=== PATIENT | male | born 1995 | race Caucasian/White ===

== ENCOUNTER 2023-11-14 17:25 | Emergency (ER) | payer BC, OTHER ==
--- NOTE | 2023-11-14 17:43 | ED ---
General Adult HPI - General Source: patient Mode of arrival: ambulatory Limitations: no limitations <Payal Giang - Last Filed: 11/14/23 17:42> <Crissy Walton - Last Filed: 11/16/23 00:19> - General Stated complaint: Vomiting, abd pain Time Seen by Provider: 11/14/23 17:42 - History of Present Illness Initial comments: 28-year-old male presenting chief complaint of right lower quadrant pain. Pain started earlier today. He admits to nausea and vomiting. (Payal Giang) 28-year-old male who presents emergency department reporting to right lower quadrant pain. States that it started earlier today. He has associated nausea with vomiting. States his emesis was dark in coloration. He denies history of peptic ulcer. No history of NSAID or alcohol use. Denies black or bloody stools. Patient denies of fever however does have 1 measured in the emergency department. He denies cough, shortness of breath. No ear pain or sore throat. He denies any urinary complaints. Does admit to some reproducible right-sided flank pain after cutting the grass today. No numbness or tingling into his lower extremities. No history of intravenous drug use. No other alleviating, precipitating or modifying factors (Crissy Walton) - Related Data Previous Rx's Medication Instructions Recorded Ondansetron Odt [Zofran Odt] 4 mg PO Q8HR PRN #30 tab 11/14/23 Allergies Allergy/AdvReac Type Severity Reaction Status Date / Time No Known Allergies Allergy Verified 11/14/23 17:58 Review of Systems ROS Other: All systems not noted in ROS Statement are negative. <Payal Giang - Last Filed: 11/14/23 17:42> ROS Other: All systems not noted in ROS Statement are negative. <Crissy Walton - Last Filed: 11/16/23 00:19> ROS Statement: Those systems with pertinent positive or pertinent negative responses have been documented in the HPI. General Exam <Payal Giang - Last Filed: 11/14/23 17:42> General appearance: alert, in no apparent distress Head exam: Present: atraumatic, normocephalic, normal inspection Eye exam: Present: normal appearance, PERRL, EOMI. Absent: scleral icterus, conjunctival injection, periorbital swelling ENT exam: Present: normal exam, mucous membranes moist Neck exam: Present: normal inspection. Absent: tenderness, meningismus, lymphadenopathy Respiratory exam: Present: normal lung sounds bilaterally. Absent: respiratory distress, wheezes, rales, rhonchi, stridor Cardiovascular Exam: Present: regular rate, normal rhythm, normal heart sounds. Absent: systolic murmur, diastolic murmur, rubs, gallop, clicks GI/Abdominal exam: Present: soft, tenderness (Right lower quadrant), normal bowel sounds. Absent: distended, guarding, rebound, rigid Extremities exam: Present: normal inspection, full ROM, normal capillary refill. Absent: tenderness, pedal edema, joint swelling, calf tenderness Back exam: Present: normal inspection Neurological exam: Present: alert, oriented X3, CN II-XII intact Psychiatric exam: Present: normal affect, normal mood Skin exam: Present: warm, dry, intact, normal color. Absent: rash <Crissy Walton - Last Filed: 11/16/23 00:19> - General Exam Comments Initial Comments: Visual Physical Exam Vital signs reviewed General: Well-appearing, nontoxic, no acute distress. Head: Normocephalic, atraumatic Eyes: PERRLA, EOMI ENT: Airway patent Chest: Nonlabored breathing Skin: No visual rash, normal skin tone Neuro: Alert and oriented 3 Musculoskeletal: No gross abnormalities (Payal Giang) Course Vital Signs 11/14/23 11/14/23 17:55 19:46 Temperature 101.2 F H 98.4 F Pulse Rate 117 H 84 Respiratory 22 16 Rate Blood Pressure 120/74 104/57 O2 Sat by Pulse 97 98 Oximetry Medical Decision Making <Payal Giang - Last Filed: 11/14/23 17:42> - Lab Data Result diagrams: 11/14/23 18:08 11/14/23 18:08 <Crissy Walton - Last Filed: 11/16/23 00:19> - Medical Decision Making I performed the quick note portion of this visit, electronically signed Payal Giang PA-C (Payal Giang) Was pt. sent in by a medical professional or institution (LAISHA Blair, AVIATION SAFETY EQUIPMENT TECHNICIAN, urgent care, hospital, or fpc...) When possible be specific @ -No Did you speak to anyone other than the patient for history (EMS, parent, family, police, friend...)? What history was obtained from this source @ -Spoke with the patient's significant other for history Did you review nursing and triage notes (agree or disagree)? Why? @ -I reviewed and agree with nursing and triage notes Were old charts reviewed (outside hosp., previous admission, EMS record, old EKG, old radiological studies, urgent care reports/EKG's, fpc records)? Report findings @ -No old charts were reviewed Differential Diagnosis (chest pain, altered mental status, abdominal pain women, abdominal pain men, vaginal bleeding, weakness, fever, dyspnea, syncope, headache, dizziness, GI bleed, back pain, seizure, CVA, palpatations, mental health, musculoskeletal)? @ -Differential Abdominal Pain Men: Appendicitis, cholecystitis, diverticulosis, ischemic bowel, pancreatitis, hepat itis, UTI, gastroenteritis, AAA, incarcerated hernia, bowel obstruction, constipation, inflammatory bowel, hepatitis, peptic ulcer disease, splenic infarction, perforated viscus, testicular torsion, this is not meant to be an all-inclusive list EKG interpreted by me (3pts min.). @ -Not done X-rays interpreted by me (1pt min.). @ -None done CT interpreted by me (1pt min.). @ -Yes and demonstrates herniated disc in the back. Appendix is normal U/S interpreted by me (1pt. min.). @ -None done What testing was considered but not performed or refused? (CT, X-rays, U/S, labs)? Why? @ -Rectal exam was recommended however patient refused What meds were considered but not given or refused? Why? @ -None Did you discuss the management of the patient with other professionals (professionals i.e. ., PA, AVIATION SAFETY EQUIPMENT TECHNICIAN, lab, RT, psych nurse, health and social care teacher, armored car driver, teacher, program officer, case work aide)? Give summary @ -No Was smoking cessation discussed for >3mins.? @ -No Was critical care preformed (if so, how long)? @ -No Were there social determinants of health that impacted care today? How? (Ho melessness, low income, unemployed, alcoholism, drug addiction, transportation, low edu. Level, literacy, decrease access to med. care, retirement, rehab)? @ -No Was there de-escalation of care discussed even if they declined (Discuss DNR or withdrawal of care, Hospice)? DNR status @ -No What co-morbidities impacted this encounter? (DM, HTN, Smoking, COPD, CAD, Cancer, CVA, ARF, Chemo, Hep., AIDS, mental health diagnosis, sleep apnea, morbid obesity)? @ -None Was patient admitted / discharged? Hospital course, mention meds given and route, prescriptions, significant lab abnormalities, going to OR and other pertinent info. @ -Upon arrival patient seen and evaluated in room 12. Thorough history and physical exam was performed. IV access was established. Patient given IV fluids and Tylenol for pain and fever. CT was performed. Patient does have herniated disc which explains his flank pain. Appendix is visualized and is normal. Due to patient's nausea, vomiting, right lower quadrant pain with fever I did recommend that the patient strictly monitor his symptoms. If he continues to have right lower quadrant pain I recommend that the patient be reevaluated. At this time patient feels improved after IV fluids. He is agreeable to discharge home. Instructed to return if his symptoms do not alleviate in 48 hours. There is high clinical suspicion for appendicitis however appendix appears normal at this time. Patient agreeable to this plan was discharged in stable condition Undiagnosed new problem with uncertain prognosis? @ -No Drug Therapy requiring intensive monitoring for toxicity (Heparin, Nitro, Insulin, Cardizem)? @ -No Were any procedures done? @ -No Diagnosis/symptom? @ -Acute right lower quadrant abdominal pain, acute pyrexia Acute, or Chronic, or Acute on Chronic? @ -Acute Uncomplicated (without systemic symptoms) or Complicated (systemic symptoms)? @ -Complicated Side effects of treatment? @ -No Exacerbation, Progression, or Severe Exacerbation? @ -No Poses a threat to life or bodily function? How? (Chest pain, [place], [place], pneumonia, PE, COPD, DKA, ARF, appy, cholecystitis, CVA, Diverticulitis, Homicidal, Suicidal, threat to staff... and all critical care pts) @ -No (Crissy Walton) - Lab Data Lab Results 11/14/23 11/14/23 11/14/23 Range/Units 18:08 18:08 18:08 WBC 10.4 (3.8-10.6) k/uL RBC 4.97 (4.30-5.90) m/uL Hgb 15.0 (13.0-17.5) gm/dL Hct 41.7 (39.0-53.0) % MCV 83.9 (80.0-100.0) fL MCH 30.1 (25.0-35.0) pg MCHC 35.9 (31.0-37.0) g/dL RDW 12.2 (11.5-15.5) % Plt Count 209 (150-450) k/uL MPV 7.1 Neutrophils % 85 % Lymphocytes % 7 % Monocytes % 7 % Eosinophils % 1 % Basophils % 0 % Neutrophils # 8.8 H (1.3-7.7) k/uL Lymphocytes # 0.7 L (1.0-4.8) k/uL Monocytes # 0.7 (0-1.0) k/uL Eosinophils # 0.1 (0-0.7) k/uL Basophils # 0.0 (0-0.2) k/uL Sodium 138 (137-145) mmol/L Potassium 3.3 L (3.5-5.1) mmol/L Chloride 103 (98-107) mmol/L Carbon Dioxide 22 (22-30) mmol/L Anion Gap 13 mmol/L BUN 15 (9-20) mg/dL Creatinine 0.84 (0.66-1.25) mg/dL Est GFR (CKD-EPI)AfAm >90 (>60 ml/min/1.73 sqM) Est GFR (CKD-EPI)NonAf >90 (>60 ml/min/1.73 sqM) Glucose 97 (74-99) mg/dL Lactic Ac Sepsis Rflx Plasma Lactic Acid Jacob (0.7-2.0) mmol/L Calcium 9.6 (8.4-10.2) mg/dL Total Bilirubin 4.3 H (0.2-1.3) mg/dL AST 28 (17-59) U/L ALT 18 (4-49) U/L Alkaline Phosphatase 46 (38-126) U/L Total Protein 7.7 (6.3-8.2) g/dL Albumin 4.8 (3.5-5.0) g/dL Amylase 40 (30-110) U/L Lipase 69 (23-300) U/L Urine Color Colorless Urine Appearance Clear (Clear) Urine pH 7.0 (5.0-8.0) Ur Specific Baxter 1.009 (1.001-1.035) Urine Protein Negative (Negative) Urine Glucose (UA) Negative (Negative) Urine Ketones Negative (Negative) Urine Blood Negative (Negative) Urine Nitrite Negative (Negative) Urine Bilirubin Negative (Negative) Urine Urobilinogen <2.0 (<2.0) mg/dL Ur Leukocyte Esterase Negative (Negative) 11/14/23 11/14/23 11/14/23 Range/Units 18:08 18:56 21:02 WBC (3.8-10.6) k/uL RBC (4.30-5.90) m/uL Hgb (13.0-17.5) gm/dL Hct (39.0-53.0) % MCV (80.0-100.0) fL MCH (25.0-35.0) pg MCHC (31.0-37.0) g/dL RDW (11.5-15.5) % Plt Count (150-450) k/uL MPV Neutrophils % % Lymphocytes % % Monocytes % % Eosinophils % % Basophils % % Neutrophils # (1.3-7.7) k/uL Lymphocytes # (1.0-4.8) k/uL Monocytes # (0-1.0) k/uL Eosinophils # (0-0.7) k/uL Basophils # (0-0.2) k/uL Sodium (137-145) mmol/L Potassium (3.5-5.1) mmol/L Chloride (98-107) mmol/L Carbon Dioxide (22-30) mmol/L Anion Gap mmol/L BUN (9-20) mg/dL Creatinine (0.66-1.25) mg/dL Est GFR (CKD-EPI)AfAm (>60 ml/min/1.73 sqM) Est GFR (CKD-EPI)NonAf (>60 ml/min/1.73 sqM) Glucose (74-99) mg/dL Lactic Ac Sepsis Rflx Y Plasma Lactic Acid Jacob 2.4 H* 0.9 (0.7-2.0) mmol/L Calcium (8.4-10.2) mg/dL Total Bilirubin (0.2-1.3) mg/dL AST (17-59) U/L ALT (4-49) U/L Alkaline Phosphatase (38-126) U/L Total Protein (6.3-8.2) g/dL Albumin (3.5-5.0) g/dL Amylase (30-110) U/L Lipase (23-300) U/L Urine Color Urine Appearance (Clear) Urine pH (5.0-8.0) Ur Specific Baxter (1.001-1.035) Urine Protein (Negative) Urine Glucose (UA) (Negative) Urine Ketones (Negative) Urine Blood (Negative) Urine Nitrite (Negative) Urine Bilirubin (Negative) Urine Urobilinogen (<2.0) mg/dL Ur Leukocyte Esterase (Negative) Disposition <Payal Giang - Last Filed: 11/14/23 17:42> Is patient prescribed a controlled substance at d/c from ED?: No Time of Disposition: 22:07 <Crissy Walton - Last Filed: 11/16/23 00:19> Clinical Impression: RLQ abdominal pain, Pyrexia, Bulging disc, Hypokalemia Disposition: HOME SELF-CARE Condition: Stable Instructions (If sedation given, give patient instructions): Abdominal Pain (ED) Additional Instructions: Please monitor your symptoms. Take 500 mg of Tylenol every 6 hours for fever control if needed. Use the Zofran for nausea. If your symptoms persist in a few days, you need to be reevaluated. You may need an MRI of your back if your pain persists in the back. Return immediately if your symptoms worsen Prescriptions: Ondansetron Odt [Zofran Odt] 4 mg PO Q8HR PRN #30 tab PRN Reason: Nausea Referrals: [facility],Clinic [REFERRING] - 1-2 days
[2023-11-14 18:40] LABS: Appearance,Urine Clear (Clear); Bilirubin,Urine Negative (Negative); Blood,Urine Negative (Negative); Color,Urine Colorless; Glucose,Urine (UA) Negative (Negative); Ketones,Urine Negative (Negative); Leukocyte Esterase,Urine Negative (Negative); Nitrite,Urine Negative (Negative); Protein,Urine Negative (Negative); Specific Gravity,Urine 1.009 (1.001-1.035); Urobilinogen,Urine <2.0 mg/dL (<2.0)
[2023-11-14 18:52] LABS: ALT 18 U/L (4-49); AST 28 U/L (17-59); African American GFR (CKD) >90 (>60 ml/min/1.73 sqM); Albumin 4.8 g/dL (3.5-5.0); Alkaline Phosphatase 46 U/L (38-126); Amylase 40 U/L (30-110); Anion Gap 13 mmol/L; Blood Urea Nitrogen 15 mg/dL (9-20); Calcium 9.6 mg/dL (8.4-10.2); Carbon Dioxide 22 mmol/L (22-30); Chloride 103 mmol/L (98-107); Glucose 97 mg/dL (74-99); Lipase 69 U/L (23-300); Non-African American GFR(CKD) >90 (>60 ml/min/1.73 sqM); Potassium 3.3 mmol/L (3.5-5.1); Sodium 138 mmol/L (137-145); Total Bilirubin 4.3 mg/dL (0.2-1.3); Total Protein 7.7 g/dL (6.3-8.2)
[2023-11-14 19:06] LABS: Basophils % (A) 0 %; Eosinophils # (A) 0.1 k/uL (0-0.7); Eosinophils % (A) 1 %; HCT 41.7 % (39.0-53.0); Lymphocytes # (A) 0.7 k/uL (1.0-4.8); Lymphocytes % (A) 7 %; MCH 30.1 pg (25.0-35.0); MCHC 35.9 g/dL (31.0-37.0); MCV 83.9 fL (80.0-100.0); Mean Platelet Volume 7.1; Monocytes # (A) 0.7 k/uL (0-1.0); Monocytes % (A) 7 %; Neutrophils # (A) 8.8 k/uL (1.3-7.7); Neutrophils % (A) 85 %; Platelet Count 209 k/uL (150-450); RBC 4.97 m/uL (4.30-5.90); RDW 12.2 % (11.5-15.5); WBC 10.4 k/uL (3.8-10.6)
[2023-11-14 19:48] VITALS: BP 104/57; PULSE 84; RESP 16; TEMP 98.4
[2023-11-14] MEDS: SODIUM CHLORIDE 0.9% 1,000 ML IV ONE ×2 (19:49→22:20)
[2023-11-14] MEDS: ONDANSETRON 4 MG/2 ML VIAL IVP STA (19:52)
[2023-11-14] MEDS: ACETAMINOPHEN IV (For NPO) 1,000 MG in EMPTY BAG 1 BAG IVPB STA (19:52)
--- NOTE | 2023-11-14 20:01 | CT ---
EXAMINATION TYPE: CT abdomen pelvis w con CT DLP: 728.7 mGycm, Automated exposure control for dose reduction was used. DATE OF EXAM: 11/14/2023 7:42 PM COMPARISON: None CLINICAL INDICATION:Male, 28 years old with history of RLQ abdominal pain; RLQ abdominal pain; pt rep orts nausea/vomiting. Pt has numbness/tingling in bilateral extremities. TECHNIQUE: Axial CT abdomen pelvis w con;Sagittal and coronal reformats were created on a separate w orkstation. Contrast used:100 ml mL of Isovue 300 with IV Contrast, (none if empty) Oral contrast used: without Oral Contrast (none if empty) FINDINGS: LOWER CHEST: Unremarkable ABDOMEN LIVER: Unremarkable GALLBLADDER AND BILE DUCTS: Unremarkable. PANCREAS: Unremarkable. SPLEEN: Unremarkable. ADRENAL GLANDS: Unremarkable. KIDNEYS AND URETERS: No evidence of hydronephrosis or renal calculus. The ureters are unremarkable. PELVIS BLADDER: Unremarkable REPRODUCTIVE: Unremarkable. ABDOMEN & PELVIS STOMACH AND BOWEL: No evidence of bowel obstruction. The appendix is normal and the distal tip termin ates over the anterior aspect of L5. PERITONEUM/RETROPERITONEUM: No evidence of pneumoperitoneum or free fluid. VASCULATURE: No evidence of aortic aneurysm. MUSCULOSKELETAL: No acute osseous abnormalities, disc bulge at L4-L5 with mild to moderate neural for aminal stenosis. LYMPH NODES: No gross evidence for lymphadenopathy. SOFT TISSUE/ABDOMINAL WALL: Unremarkable IMPRESSION: 1. No obstructive uropathy or renal calculus. The appendix is normal. No acute process in the abdome n or pelvis. 2. L4-L5 disc bulge with [id number] right neural foraminal stenosis. Consider further evaluati on with outpatient MRI of the lumbar spine.
[2023-11-14] MEDS: POTASSIUM CHLORIDE 10 MEQ in WATER FOR INJECTION 1 100ML.BAG IVPB SCH (22:20)
[2023-11-14] MEDS: POTASSIUM CHLORIDE ER 20 MEQ TAB.ER PO STA (22:25)
== END 2023-11-14 23:13 | disposition home or self-care (01) ==
LOC: EC 17:25
DX: E87.6 Hypokalemia (principal); R50.9 Fever, unspecified; R10.31 Right lower quadrant pain
CPT/HCPCS: 36415; 80053; 82150; 83605; 83690; 85025; 81003; 74177; 99284; 96360; Q9967

== ENCOUNTER → 2023-11-16 | Outpatient (CLI) | payer BC, OTHER ==
--- NOTE | 2023-11-16 13:29 | US ---
EXAMINATION TYPE: US abdomen complete DATE OF EXAM: 11/16/2023 COMPARISON: NONE CLINICAL INDICATION: Male, 28 years old with history of R10.31 RIGHT LOWER QUADRANT PAIN E80.7 DISORD ER OF; RLQ pain TECHNIQUE: Multiple sonographic images of the abdomen are obtained. FINDINGS: EXAM MEASUREMENTS: Liver Length: 14.2 cm Gallbladder Wall: 0.07 cm CBD: 0.24 cm Spleen: 11.4 cm Right Kidney: 11.4 x 4.0 x 4.8 cm Left Kidney: 9.7 x 5.4 x 5.1 cm CADASTRAL ENGINEER NOTES: Pancreas: wnl Liver: wnl Gallbladder: Possible layer of sludge seen, pt states he has been NPO for over 12 hours Evidence for sonographic Burch's sign: No CBD: wnl Spleen: wnl Right Kidney: wnl Left Kidney: wnl Upper IVC: wnl Abd Aorta: wnl The liver is homogenous. The intrahepatic portion of the IVC and proximal abdominal aorta are within normal limits. There is no evidence of cholelithiasis layering echoes are noted. Common bile duct is unremarkable. The visualized portions of the pancreas are homogenous. The spleen is unremarkable . Kidneys are symmetric and free of hydronephrosis. No renal lesions are seen. IMPRESSION: Biliary sludge. No evidence for acute process.
--- NOTE | 2023-11-16 14:09 | US ---
EXAMINATION TYPE: US abdomen APPY DATE OF EXAM: 11/16/2023 COMPARISON: CT: 11/14/23 CLINICAL INDICATION: Male, 28 years old with history of R1031 Right lower quadrant pain; RLQ pain TECHNIQUE: Multiple sonographic images of the right lower quadrant were obtained with graded compress ion. FINDINGS: APPENDIX Is the appendix seen in its entirety from the proximal cecum to distal end: No Is there inflammatory changes or free fluid present: No PULP SCREEN OPERATOR NOTES: No rebound tenderness. No free fluid seen. Peristalsing bowel visualized. IMPRESSION: Appendix is not visualized.
== END | disposition home or self-care (01) ==
LOC: RADUSWWP 12:33
PROVIDERS: ATTEND Family Medicine
DX: R10.31 Right lower quadrant pain (principal); E80.7 Disorder of bilirubin metabolism, unspecified; R11.2 Nausea with vomiting, unspecified
CPT/HCPCS: 76700; 76705

== ENCOUNTER → 2023-12-04 | Outpatient (CLI) | payer BC, OTHER ==
[2023-12-05 10:21] LABS: Bilirubin, Conjugated 0.35 mg/dL (0.20-0.40); Bilirubin,Unconjugated 1.35 mg/dL (0.20-1.00); C Reactive Protein <0.30 mg/dL (0.00-0.80); Iron 125 UG/DL (65-175); Total Bilirubin 1.7 mg/dL (0.3-1.2); Total Iron Binding Capacity 372 UG/DL (228-460)
== END | disposition home or self-care (01) ==
LOC: LABWHC1 10:13
PROVIDERS: ATTEND Internal Medicine Gastroenterology
DX: R10.9 Unspecified abdominal pain (principal); R17 Unspecified jaundice; Z83.49 Family history of other endocrine, nutritional and metabolic diseases
CPT/HCPCS: 36415; 81256; 82248; 82728; 83516; 83540; 83550; 85652; 86140

== ENCOUNTER 2024-01-25 06:45 | Day surgery (SDC) | payer BC, OTHER ==
[2024-01-24 10:01] VITALS: BMI 23.4
[2024-01-25] MEDS: LACTATED RINGERS 1,000 ML IV SCH (07:17)
[2024-01-25] MEDS: IV FLUID CONTINUATION 1,000 ML IV ONE (07:20)
[2024-01-25 07:23] VITALS: TEMP 97.5
[2024-01-25] MEDS ORDERED: LIDOCAINE 2% (PF) 20 MG/ML 5 ML VIAL ONE (07:50)
[2024-01-25] MEDS ORDERED: PROPOFOL 10 MG/ML 20 ML VIAL IV ONE (07:50)
[2024-01-25] MEDS ORDERED: fentaNYL (PF) 50 MCG/ML 2 ML AMP ONE (07:50)
--- NOTE | 2024-01-25 08:08 | P.PCN ---
Date of Procedure: 01/25/24 Procedure(s) Performed: Brief history: Patient is a pleasant 29-year-old white male scheduled for an elective upper endoscopy as well as colonoscopy as a part of evaluation of abdominal pain, intermittent nausea vomiting change in bowel habits for the last 3 months duration Procedure performed: Esophagogastroduodenoscopy with biopsy Colonoscopy Preoperative diagnosis: Abdominal pain, intermittent nausea vomiting Change in bowel habits Anesthesia: MAC Procedure: After informed consent was obtained from the patient was brought into the endoscopy unit and IV sedation was administered by anesthesia under continuous monitoring. Initially upper endoscopy was done. The Olympus GF 160 video endoscope was inserted inserted into the mouth and esophagus intubated without any difficulty and was gradually advanced into the stomach and duodenum and carefully examined. The bulb and second part of the duodenum appeared normal. Biopsies were done from the duodenum to rule out celiac disease. The scope was then withdrawn into the stomach adequately insufflated with air and upon careful examination the antrum had linear areas of erythema consistent with gastritis and biopsies were done from this area. Mucosa of the body, cardia and fundus appeared normal. The scope was then withdrawn into the esophagus. The GE junction was located at 40 cm to the incisors. It appeared regular with no erythema erosions or ulcerations. Rest of the esophagus appeared normal. Biopsies were done from the distal esophagus. Patient tolerated the procedure well. At this time the patient continued to remain sedation. Initial digital rectal examination was normal. Olympus CF 160 video colonoscope was then inserted into the rectum and gradually advanced to the cecum without any difficulty. Careful examination was performed as the scope was gradually being withdrawn. The prep was excellent. The cecum, ascending colon, transverse colon, descending colon, sigmoid colon and rectum appeared normal. Retroflexion was performed in the rectum and no lesions were noted. Patient tolerated the procedure well. Impression: 1. Upper endoscopy revealed mild antral gastritis 2. Colonoscopy was within normal limits with no evidence of colorectal neoplasia Recommendations: Findings of this examination were discussed with the patient as well as his family. He was advised to follow-up with the biopsy results. Continue with current medications. Follow-up in the office in 2 weeks.
[2024-01-25 08:48] VITALS: RESP 16
[2024-01-25 08:49] VITALS: BP 106/65; PULSE 65
== END 2024-01-25 09:19 | disposition home or self-care (01) ==
LOC: ORWHC2ENDO 06:45
PROVIDERS: ATTEND Internal Medicine Gastroenterology
DX: K29.50 Unspecified chronic gastritis without bleeding (principal); D72.820 Lymphocytosis (symptomatic); R19.4 Change in bowel habit; K21.9 Gastro-esophageal reflux disease without esophagitis; F17.290 Nicotine dependence, other tobacco product, uncomplicated; Z79.899 Other long term (current) drug therapy
CPT/HCPCS: 88305; 45378; 43239; J3010; J2704; J2001